=== PATIENT | male | born 1945 | race Caucasian/White ===

== ENCOUNTER 2017-10-24 17:11 | Inpatient (IN) | payer BC ==
[~2017-10-24] VITALS: Ht 177.8 cm; Wt 81.6 kg
[~2017-10-24 17:11] MED LIST: CYAN500L MM; FINA5TAB1 PO; FOLI1TAB19 PO; FURO-572 PO; LOSA100T1 PO; OMEP40EC14 PO; PRAV40TA PO; RANI150T8 PO; SLOMAG PO; TERA2CAP PO; [UNRECOGNIZED DRUG - CODE] PO
[2017-10-24 17:16] VITALS: BP 144/90
[2017-10-24] MEDS ORDERED: NACL 0.9% 1,000 ML IV ONE ×2 (18:00→20:55)
[2017-10-24 18:30] LABS: BASOPHILS % (AUTO) 0.4 % (0.0-2.0); EOSINOPHILS # (AUTO) 0.1 K/uL (0-0.4); EOSINOPHILS % (AUTO) 0.8 % (0.0-4.0); HEMOGLOBIN 9.7 g/dL (12.0-18.0); LYMPHOCYTES # (AUTO) 0.5 K/uL (2.0-11.5); LYMPHOCYTES % (AUTO) 5.9 % (20.5-51.1); MEAN CORPUSCULAR HEMOGLOBIN 35 pg (27-31); MEAN CORPUSCULAR HGB CONC 34 g/dL (33-37); MEAN CORPUSCULAR VOLUME 105.3 fL (80-94); MONOCYTES # (AUTO) 1.3 K/uL (0.8-1.0); MONOCYTES % (AUTO) 15.8 % (1.7-9.3); NEUTROPHILS # (AUTO) 6.2 K/uL (1.8-7.7); NEUTROPHILS % (AUTO) 77.1 % (42.2-75.2); PLATELET COUNT (AUTO) 176 K/uL (140-450); RED BLOOD CELL COUNT(AUTO) 2.75 MIL/uL (4.20-6.10); RED CELL DISTRIBUTION WIDTH 12.7 % (11.6-13.7)
[2017-10-24] MEDS ORDERED: LEVOFLOXACIN 500 MG/D5W PREMIX 100 ML IV ONE (18:30)
[2017-10-24 18:52] LABS: ANION GAP 15.9 (8-16); CHLORIDE 98 mmol/L (98-107); CREATININE 1.9 mg/dL (0.7-1.3); GLUCOSE 99 mg/dL (74-106); POTASSIUM 4.9 mmol/L (3.5-5.1); SODIUM SERUM 133 mmol/L (136-145); UREA NITROGEN, BLOOD 41 mg/dL (7-18)
[2017-10-24 18:58] LABS: ALBUMIN 3.5 g/dL (3.4-5.0); ASPARTATE AMINOTRANSFERASE 80 U/L (15-37); TOTAL BILIRUBIN 0.7 mg/dL (0.0-1.0)
[2017-10-24] MEDS ORDERED: HYDROcodone/APAP 7.5/325 MG 1 TAB PO PRN (19:45)
[2017-10-24] MEDS ORDERED: ONDANSETRON 4 MG/2 ML VIAL IVP PRN (19:45)
[2017-10-24] MEDS ORDERED: LORazepam 2 MG/ML VIAL IVP PRN (19:50)
[2017-10-24 20:13] VITALS: BP 136/82
[2017-10-24 20:25] LABS: CHOL/HDL RATIO 2.2 (1-4.5); FREE T4 (FREE THYROXINE) 0.93 ng/dL (0.76-1.46); MAGNESIUM 2.3 mg/dL (1.8-2.4); PHOSPHORUS 4.4 mg/dL (2.5-4.9); THYROID STIMULATING HORMONE 2.7 uIU/mL (0.34-3.74)
[2017-10-24] MEDS ORDERED: CLINDAMYCIN 600 MG/4 ML VIAL ONE (22:48)
[2017-10-24] MEDS: DOCUSATE SODIUM 100 MG GELCAP PO SCH (23:02)
[2017-10-24] MEDS: CLINDAMYCIN 600 MG in DEXTROSE 5% 50 ML IV SCH (23:06)
[2017-10-24 23:36] LABS: PROTHROMBIN TIME 14.1 secs (10.8-13.4)
[2017-10-25] VITALS: BP 106/76
[2017-10-25 04:00] VITALS: BP 113/75
[2017-10-25] MEDS ORDERED: CLINDAMYCIN 600 MG/4 ML VIAL ONE (04:35)
[2017-10-25 04:50] LABS: BARBITURATE, URINE NEG. ng/ml (NEG <=200); BENZODIAZEPINE, URINE NEG. ng/mL (NEG <=200); CANNABINOID, URINE NEG. ng/mL (NEG <=50); COCAINE, URINE NEG. ng/mL (NEG <=300); OPIATE, URINE NEG. ng/mL (NEG <=2000); PHENCYCLIDINE SCREEN,URINE NEG. ng/mL (NEG <=25)
[2017-10-25] MEDS: CLINDAMYCIN 600 MG in DEXTROSE 5% 50 ML IV SCH ×2 (05:00→12:22)
[2017-10-25 06:40] LABS: APPEARANCE,URINE CLEAR (CLEAR); BILIRUBIN,URINE NEGATIVE (NEGATIVE); BLOOD, URINE NEGATIVE (NEGATIVE); COLOR,URINE YELLOW (YELLOW); LEUKOCYTE ESTERASE ,URINE NEGATIVE (NEGATIVE); NITRITE, URINE NEGATIVE (NEGATIVE); PH,URINE 5.5 (5.0-9.0); UGLUCOSE NEGATIVE (NEGATIVE)
[2017-10-25 07:04] LABS: BASOPHILS % (AUTO) 0.6 % (0.0-2.0); EOSINOPHILS # (AUTO) 0.1 K/uL (0-0.4); EOSINOPHILS % (AUTO) 0.9 % (0.0-4.0); HEMATOCRIT 27.4 % (36-52); HEMOGLOBIN 9.2 g/dL (12.0-18.0); LYMPHOCYTES # (AUTO) 0.6 K/uL (2.0-11.5); LYMPHOCYTES % (AUTO) 7.9 % (20.5-51.1); MEAN CORPUSCULAR HEMOGLOBIN 36 pg (27-31); MEAN CORPUSCULAR HGB CONC 34 g/dL (33-37); MEAN CORPUSCULAR VOLUME 106.1 fL (80-94); MONOCYTES # (AUTO) 1.3 K/uL (0.8-1.0); MONOCYTES % (AUTO) 17.1 % (1.7-9.3); NEUTROPHILS # (AUTO) 5.7 K/uL (1.8-7.7); NEUTROPHILS % (AUTO) 73.5 % (42.2-75.2); PLATELET COUNT (AUTO) 153 K/uL (140-450); RED BLOOD CELL COUNT(AUTO) 2.58 MIL/uL (4.20-6.10); RED CELL DISTRIBUTION WIDTH 12.9 % (11.6-13.7); WHITE BLOOD COUNT (AUTO) 7.8 K/uL (4.8-10.8)
[2017-10-25 07:29] LABS: MAGNESIUM 2.1 mg/dL (1.8-2.4); PHOSPHORUS 4.4 mg/dL (2.5-4.9)
[2017-10-25 07:40] LABS: CARBON DIOXIDE 22.8 mmol/L (21-32); CHLORIDE 101 mmol/L (98-107); CREATININE 1.4 mg/dL (0.7-1.3); GLUCOSE 95 mg/dL (74-106); POTASSIUM 4.8 mmol/L (3.5-5.1); SODIUM SERUM 135 mmol/L (136-145); UREA NITROGEN, BLOOD 37 mg/dL (7-18)
[2017-10-25 08:00] VITALS: BP 113/74
[2017-10-25] MEDS ORDERED: FERROUS SULFATE 325 MG TABEC PO SCH (08:00)
[2017-10-25] MEDS: DOCUSATE SODIUM 100 MG GELCAP PO SCH (08:58)
[2017-10-25] MEDS ORDERED: LACTOBACILLUS RHAMNOSUS GG 1 EACH CAP PO SCH (09:00)
[2017-10-25] MEDS ORDERED: MULTIVITAMIN 1 TAB PO SCH (09:00)
[2017-10-25] MEDS ORDERED: TERAZOSIN 5 MG CAP PO SCH (09:00)
[2017-10-25] MEDS ORDERED: THIAMINE 100 MG TAB PO SCH (09:00)
[2017-10-25] MEDS ORDERED: PANTOPRAZOLE 40 MG TABEC PO SCH (09:00)
[2017-10-25] MEDS ORDERED: MAGNESIUM CHLORIDE 64 MG TABEC PO SCH (09:00)
[2017-10-25] MEDS ORDERED: CYANOCOBALAMIN 100 MCG TAB PO SCH (09:00)
[2017-10-25] MEDS ORDERED: FUROSEMIDE 20 MG TAB PO SCH (09:00)
[2017-10-25] MEDS ORDERED: FINASTERIDE 5 MG TAB PO SCH (09:00)
[2017-10-25] MEDS ORDERED: FAMOTIDINE 20 MG TAB PO SCH (09:00)
[2017-10-25] MEDS ORDERED: FOLIC ACID 1 MG TAB PO SCH ×2 (09:00)
[2017-10-25] MEDS ORDERED: PANTOPRAZOLE 40 MG INJ VIAL IVP SCH (09:00)
[2017-10-25] MEDS ORDERED: LOSARTAN 50 MG TAB PO SCH (09:00)
[2017-10-25 14:22] VITALS: BP 99/55
[2017-10-25] MEDS ORDERED: LEVOFLOXACIN 250 MG/D5 PREMIX 50 ML IV SCH (20:00)
[2017-10-25] MEDS ORDERED: ATORVASTATIN 20 MG TAB PO SCH (21:00)
[2017-10-26 15:20] LABS: FOLIC ACID > 20.00 ng/mL (>3.0)
[2017-10-26 15:37] LABS: FERRITIN 509 ng/mL (30-400); TRANSFERRIN 190 mg/dL (200-370)
== END 2017-10-25 18:21 | disposition expired | DRG 177 ==
LOC: MED 17:11 → EDBEDREQTM 19:19 → MMU 19:40
PROVIDERS: ADMIT Family Medicine Sports Medicine; ATTEND Family Medicine Sports Medicine
PROC: 3E0234Z Introduction of Serum, Toxoid and Vaccine into Muscle, Percutaneous Approach (ICD-10-PCS; 2017-10-24)
PROC: 5A12012 Performance of Cardiac Output, Single, Manual (ICD-10-PCS; principal; 2017-10-25)
DX: J69.0 Pneumonitis due to inhalation of food and vomit (principal); N17.0 Acute kidney failure with tubular necrosis; I46.9 Cardiac arrest, cause unspecified; I50.43 Acute on chronic combined systolic (congestive) and diastolic (congestive) heart failure; E87.5 Hyperkalemia; E87.1 Hypo-osmolality and hyponatremia; K92.2 Gastrointestinal hemorrhage, unspecified; I48.91 Unspecified atrial fibrillation; D64.9 Anemia, unspecified; S16.1XXA Strain of muscle, fascia and tendon at neck level, initial encounter; I11.0 Hypertensive heart disease with heart failure; W19.XXXA Unspecified fall, initial encounter; S09.90XA Unspecified injury of head, initial encounter; N40.0 Benign prostatic hyperplasia without lower urinary tract symptoms; J44.9 Chronic obstructive pulmonary disease, unspecified; K21.9 Gastro-esophageal reflux disease without esophagitis; S60.222A Contusion of left hand, initial encounter; S60.221A Contusion of right hand, initial encounter; S80.12XA Contusion of left lower leg, initial encounter; S80.11XA Contusion of right lower leg, initial encounter; S60.512A Abrasion of left hand, initial encounter; E78.5 Hyperlipidemia, unspecified; R74.0 Nonspecific elevation of levels of transaminase and lactic acid dehydrogenase [LDH]; S60.511A Abrasion of right hand, initial encounter; S80.812A Abrasion, left lower leg, initial encounter; S80.811A Abrasion, right lower leg, initial encounter; F10.10 Alcohol abuse, uncomplicated; Y93.89 Activity, other specified; Y92.098 Other place in other non-institutional residence as the place of occurrence of the external cause; Y99.8 Other external cause status; Z91.81 History of falling; Z79.01 Long term (current) use of anticoagulants; Z88.8 Allergy status to other drugs, medicaments and biological substances; Z87.81 Personal history of (healed) traumatic fracture; Z87.891 Personal history of nicotine dependence; Z23 Encounter for immunization
CPT/HCPCS: 36415; 70450; 71045; 72125; 80048; 80053; 80305; 81003; 82150; 82607; 82728; 82746; 82948; 83036; 83540; 83605; 83690; 83735; 83880; 84100; 84439; 84443; 84484; 85025; 85045; 85610; 85730; 86886; 86900; 86901; 87040; 87081; 90471; 90715; 93005; 93880; 96361; 96365; 97116; 99291; G0482; J1956; J3490; J7030; J7060; Q0092